=== PATIENT | female | born 1980 | race African-American/Black ===

== ENCOUNTER 2022-12-09 00:18 | Emergency (ER) | payer MEDICAID ==
[~2022-12-09] VITALS: Ht 160 cm; Wt 76.1 kg
[2022-12-09 00:41] VITALS: BP 133/82
[2022-12-09] MEDS ORDERED: IBUP-2029 PO (03:20)
== END 2022-12-09 04:54 | disposition home or self-care (01) ==
LOC: ER 00:18
DX: S63.693A Other sprain of left middle finger, initial encounter (principal); R03.0 Elevated blood-pressure reading, without diagnosis of hypertension; Y04.2XXA Assault by strike against or bumped into by another person, initial encounter; Y93.89 Activity, other specified; Y92.89 Other specified places as the place of occurrence of the external cause
CPT/HCPCS: 99282

== ENCOUNTER 2023-01-09 10:42 | Emergency (ER) | payer MEDICAID ==
[~2023-01-09] VITALS: Ht 165.1 cm; Wt 75.0 kg
[~2023-01-09 10:42] MED LIST: IBUP-2029 PO
[2023-01-09 10:47] VITALS: BP 128/79
[2023-01-09] MEDS ORDERED: ACETAMINOPHEN 325MG TABLET PO ONE (11:30)
[2023-01-09] MEDS ORDERED: IBUP-2029 PO (14:06)
[2023-01-09] MEDS ORDERED: TOPUD PO (14:06)
[2023-01-09] MEDS ORDERED: ACETAMINOPHEN 500MG TABLET PO NR (15:45)
[2023-01-09] MEDS ORDERED: ACETAMINOPHEN 325MG TABLET PO NR (15:45)
== END 2023-01-09 18:11 | disposition home or self-care (01) ==
LOC: ER 10:52
DX: S92.001A Unspecified fracture of right calcaneus, initial encounter for closed fracture (principal); S90.31XA Contusion of right foot, initial encounter; M79.661 Pain in right lower leg; W10.8XXA Fall (on) (from) other stairs and steps, initial encounter; Y93.01 Activity, walking, marching and hiking; Y92.89 Other specified places as the place of occurrence of the external cause
CPT/HCPCS: 29515; 73590; 73600; 73630; 99284; Z7610